=== PATIENT | female | born 2000 | race Two or more races ===

== ENCOUNTER 2023-08-05 09:39 | Outpatient (CLI) | payer OTHER | END 2023-08-05 09:42 | disposition home or self-care (01) | LOC: SONOGRAMA 09:39 | PROVIDERS: ATTEND Pathology Anatomic Pathology | DX: D44.0 Neoplasm of uncertain behavior of thyroid gland (principal); D34 Benign neoplasm of thyroid gland; E06.3 Autoimmune thyroiditis; E03.8 Other specified hypothyroidism ==

== ENCOUNTER 2023-11-25 06:25 | Inpatient (IN) | payer OTHER ==
[~2023-11-25] VITALS: Ht 149.9 cm; Wt 56.2 kg
[~2023-11-25 06:25] MED LIST: LEVOTHYROXINE25 MCG
[2023-11-25] MEDS ORDERED: ONDANSETRON HCL 2 MG/ML VIAL IV PRN (13:30)
[2023-11-25] MEDS ORDERED: ENALAPRILAT DIHYDRATE 1.25 MG/ML VIAL IV PRN (13:30)
[2023-11-25] MEDS ORDERED: ACETAMINOPHEN 500 MG GEL..CAP PO SCH (17:00)
[2023-11-25] MEDS ORDERED: TRAMADOL HCL 50 MG TABLET PO SCH (18:00)
[2023-11-26] MEDS ORDERED: CYCLOBENZAPRINE HCL 5 MG TABLET PO SCH (09:00)
== END 2023-11-26 18:24 | disposition home or self-care (01) | DRG 626 ==
LOC: CIR.AMB 06:25 → O/R 14:20 → SURH 16:27
PROVIDERS: ADMIT Otolaryngology; ATTEND Otolaryngology
PROC: 00QQ0ZZ Repair Vagus Nerve, Open Approach (ICD-10-PCS; 2023-11-25)
PROC: 0GTG0ZZ Resection of Left Thyroid Gland Lobe, Open Approach (ICD-10-PCS; principal; 2023-11-25 11:00)
DX: D34 Benign neoplasm of thyroid gland (principal); G97.49 Accidental puncture and laceration of other nervous system organ or structure during other procedure; S04.892A Injury of other cranial nerves, left side, initial encounter; E06.3 Autoimmune thyroiditis; Z20.822 Contact with and (suspected) exposure to COVID-19; Y65.8 Other specified misadventures during surgical and medical care; Y92.234 Operating room of hospital as the place of occurrence of the external cause